=== PATIENT | female | born 1970 | race American Indian/Alaskan Native ===

== ENCOUNTER 2017-06-17 07:16 | Observation (INO) | payer BC ==
[2017-06-17 07:24] VITALS: BMI 38.7
[2017-06-17] MEDS ORDERED: Sodium Chloride 0.9% 1,000 ML IV STA (07:30)
--- NOTE | 2017-06-17 07:52 | ED PDOC ---
HPI: General Adult Time Seen by Provider: 06/17/17 07:20 Chief Complaint (Nursing): Flu-like Symptoms Chief Complaint (Provider): Flu-like Symptoms History Per: Patient History/Exam Limitations: no limitations Onset/Duration Of Symptoms: Days (x 3) Additional Complaint(s): Domenica Sullivan is a 37 year old female presents to the ED with complaints of epigastric pain associated with nausea and vomiting onset 3 days ago. Patient reports experiencing a low grade fever today. She denies any diarrhea or bleeding. PMD: non provided Past Medical History Reviewed: Historical Data, Nursing Documentation, Vital Signs Vital Signs: Last Vital Signs Temp 97.3 F L 06/17/17 07:19 Pulse 85 06/17/17 07:19 Resp 16 06/17/17 07:19 BP 98/68 L 06/17/17 07:19 Pulse Ox 97 06/17/17 08:00 - Medical History PMH: No Chronic Diseases - Surgical History Surgical History: No Surg Hx - Family History Family History: States: Unknown Family Hx - Social History Current smoker - smoking cessation education provided: No Alcohol: Social Drugs: Denies - Home Medications Home Medications: Ambulatory Orders Medication Instructions Recorded Acetaminophen with Codeine 1 tab PO Q6 PRN #15 tab 09/22/14 [Tylenol with Codeine No. 3 300 mg-30 mg] Ciprofloxacin/Ciprofloxa HCl 500 mg PO BID #14 tab 09/22/14 [Ciprofloxacin] Ibuprofen [Motrin] 600 mg PO Q6H PRN #15 tab 09/22/14 - Allergies Allergies/Adverse Reactions: Allergies Allergy/AdvReac Type Severity Reaction Status Date / Time peanuts Allergy RASH Uncoded 06/17/17 07:28 Review of Systems ROS Statement: Except As Marked, All Systems Reviewed And Found Negative Constitutional: Positive for: Fever (low) Gastrointestinal: Positive for: Nausea, Vomiting, Abdominal Pain (epigatric). Negative for: Diarrhea Physical Exam - Reviewed Nursing Documentation Reviewed: Yes Vital Signs Reviewed: Yes - Physical Exam Appears: Positive for: Non-toxic, No Acute Distress Head Exam: Positive for: ATRAUMATIC, NORMOCEPHALIC Skin: Positive for: Normal Color, Warm, Dry Eye Exam: Positive for: Normal appearance ENT: Positive for: Other (Dry mucous membrane) Neck: Positive for: Normal, Supple Cardiovascular/Chest: Positive for: Regular Rate, Rhythm. Negative for: Murmur Respiratory: Positive for: Normal Breath Sounds. Negative for: Respiratory Distress Gastrointestinal/Abdominal: Positive for: Tenderness (mild to the right lower quadrant). Negative for: Guarding, Rebound Extremity: Positive for: Normal ROM. Negative for: Tenderness, Swelling Neurologic/Psych: Positive for: Alert, Oriented - Laboratory Results Result Diagrams: 06/17/17 07:45 06/17/17 07:45 - ECG O2 Sat by Pulse Oximetry: 97 (RA) Pulse Ox Interpretation: Normal Medical Decision Making Medical Decision Making: Time: 745 Initial Plan: --CT Abd/Pellvis IV Contrast --CMP --Urine --Urine dipstick --CBC --NaCl 100ml IV, 259 mls/hr --Pepcid 20 mg IVP --Zofran 4 mg PO --Blood Culture Scribe Attestation: Documented by Sintia Mckenzie, acting as a scribe for Walt Gutiérrez MD. Provider Scribe Attestation: All medical record entries made by the Scribe were at my direction and personally dictated by me. I have reviewed the chart and agree that the record accurately reflects my personal performance of the history, physical exam, medical decision making, and the department course for this patient. I have also personally directed, reviewed, and agree with the discharge instructions and disposition. Disposition - Clinical Impression Clinical Impression: Abdominal pain - Patient ED Disposition Is Patient to be Admitted: Yes - Disposition Disposition Time: 11:23 Condition: FAIR Forms: Bagel Nash (Bengali) - Pt Status Changed To: Hospital Disposition Of: Observation - POA Present On Arrival: None
[2017-06-17 07:59] LABS: BASO % 0.4 % (0.0-2.0); EOS # 0.2 K/uL (0.0-0.7); EOS % 1.8 % (0.0-4.0); HEMOGLOBIN 12.1 g/dL (12.0-16.0); LYMPH # 1.1 K/uL (1.0-4.3); LYMPH % 10.8 % (20.0-40.0); MEAN CELL VOLUME 85.4 fl (81.0-99.0); MEAN CORPUSCULAR HEMOGLOBIN 28.6 pg (27.0-31.0); MEAN CORPUSCULAR HGB CONC 33.5 g/dL (33.0-37.0); MEAN PLATELET VOLUME 7.6 fl (7.2-11.7); MONO # 0.6 K/uL (0.0-0.8); MONO % 6.2 % (0.0-10.0); NEUT # 8.3 K/uL (1.8-7.0); NEUT % 80.8 % (50.0-75.0); RBC 4.24 Mil/uL (3.80-5.20); WHITE BLOOD COUNT 10.2 K/uL (4.8-10.8)
[2017-06-17 08:35] LABS: ALBUMIN 3.8 g/dL (3.5-5.0); ALT/SGPT 34 U/L (9-52); AST/SGOT 25 U/L (14-36); BLOOD UREA NITROGEN 10 mg/dl (7-17); CALCIUM 8.9 mg/dL (8.4-10.2); GFR AFRICAN-AMERICAN > 60; GFR NON-AFRICAN AMERICAN > 60
[2017-06-17] MEDS ORDERED: Iohexol 300 100 ML IJ ONE (09:07)
[2017-06-17] MEDS ORDERED: Sodium Chloride 0.9% 100 ML ONE (09:07)
--- NOTE | 2017-06-17 10:41 | CT ---
PROCEDURE: CT Abdomen and Pelvis with contrast HISTORY: RLQ pain COMPARISON: None. TECHNIQUE: CT scan of the abdomen and pelvis was performed after administration of intravenous contrast. Oral contrast was not administered. Coronal and sagittal reformatted images were obtained. Contrast dose: 95 cc Omnipaque 300 Radiation dose: Total exam DLP = 1013.26 mGy-cm. This CT exam was performed using one or more of the following dose reduction techniques: Automated exposure control, adjustment of the mA and/or kV according to patient size, and/or use of iterative reconstruction technique. FINDINGS: LOWER THORAX: There is subsegmental atelectasis in the lung bases, worse on the right. LIVER: Mild hepatomegaly and diffuse fatty infiltration in the liver. No gross lesion or ductal dilatation. GALLBLADDER AND BILE DUCTS: No calcified gallstones. PANCREAS: Normal in size with homogeneous enhancement. No gross lesion or ductal dilatation. SPLEEN: Normal in size and appearance. ADRENALS: No discrete nodule. KIDNEYS AND URETERS: Both kidneys are normal in size with homogeneous enhancement. No hydronephrosis. No solid mass. VASCULATURE: No aortic aneurysm. BOWEL: The small bowel loops are normal in caliber. The colon is unremarkable. No bowel dilatation, obstruction or wall thickening. APPENDIX: There is mild dilatation of fluid-filled appendix with mild wall enhancement. No significant inflammatory changes in the right lower quadrant. No perforation or abscess. PERITONEUM: No free fluid. No free air. LYMPH NODES: No enlarged lymph nodes. BLADDER: Grossly normal in appearance. REPRODUCTIVE: The uterus is normal in size. BONES: No acute fracture. Within normal limits for the patient's age. OTHER FINDINGS: None. IMPRESSION: 1. Mild dilatation of fluid-filled appendix with mild wall enhancement without significant inflammatory changes in the right lower quadrant, perforation or abscess. Findings may represent early acute appendicitis in the appropriate clinical setting. 2. Mild hepatomegaly and hepatic steatosis.
--- NOTE | 2017-06-17 11:17 | CP.PCM.HP ---
History of Present Illness - History of Present Illness History of Present Illness: General Surgery H&P for Dr. Andrade cc: RLQ abdominal pain, nausea/vomiting 47 F with PMH that includes ovarian cysts presents for [facility] for complaint of RLQ abdominal pain and nausea/vomiting. Patient was seen and evaluated in the ED. Patient states symptoms began 3 days ago. She states that she was at home resting when symptoms began. She reports sudden onset. She states that she has had pain from ovarian cyst in same area in the past but this pain is slightly different. She also states that she neevr had vomiting with the pain. She reports fever of 101 F on Friday and multiple episodes of NBNB emesis. She denies diarrhea. She rates pain as moderate intensity. She describes pain as constant and sharp located in RLQ without radiation. She states that eating/ drinking exacerbates her symptoms while nothing alleviates them. Denies recent illness or sick contacts. Denies chills, chest pain, palpitations, SOB, urinary symptoms. PMH: ovarian cysts Meds: Denies Allergy: peanuts PSH: Denies Family: Non-contributory Social: denies tobacco/illicit drug use, drinks 2-3 alcoholic beverages every other day Present on Admission - Present on Admission Any Indicators Present on Admission: No History of DVT/PE: No History of Uncontrolled Diabetes: No Urinary Catheter: No Decubitus Ulcer Present: No History Surgical Site Infection Following: None Review of Systems - Review of Systems All systems: reviewed and no additional remarkable complaints except (as per HPI ) Past Patient History - Past Social History Alcohol: Social Drugs: Denies - PSYCHIATRIC Hx Substance Use: No - SURGICAL HISTORY Hx Surgeries: No - ANESTHESIA Hx Anesthesia: No Meds Allergies/Adverse Reactions: Allergies Allergy/AdvReac Type Severity Reaction Status Date / Time peanuts Allergy RASH Uncoded 06/17/17 07:28 Physical Exam - Constitutional Appears: Non-toxic, No Acute Distress - Head Exam Head Exam: ATRAUMATIC, NORMOCEPHALIC - Eye Exam Eye Exam: EOMI, Normal appearance Pupil Exam: PERRL - ENT Exam ENT Exam: Mucous Membranes Moist - Neck Exam Neck exam: Positive for: Full Rom. Negative for: Tenderness - Respiratory Exam Respiratory Exam: NORMAL BREATHING PATTERN - Cardiovascular Exam Cardiovascular Exam: REGULAR RHYTHM - GI/Abdominal Exam GI & Abdominal Exam: Normal Bowel Sounds, Soft, Tenderness (RLQ). absent: Distended, Firm, Guarding, Hernia, Rebound, Rigid - Extremities Exam Extremities exam: Positive for: normal capillary refill, pedal pulses present. Negative for: calf tenderness - Back Exam Back exam: absent: CVA tenderness (L), CVA tenderness (R) - Neurological Exam Neurological exam: Alert, CN II-XII Intact, Oriented x3 - Psychiatric Exam Psychiatric exam: Normal Affect, Normal Mood - Skin Skin Exam: Dry, Intact, Normal Color, Warm Results - Vital Signs Recent Vital Signs: Last Vital Signs Temp 97.3 F L 06/17/17 07:19 Pulse 85 06/17/17 07:19 Resp 16 06/17/17 07:19 BP 98/68 L 06/17/17 07:19 Pulse Ox 97 06/17/17 08:00 - Labs Result Diagrams: 06/17/17 07:45 06/17/17 07:45 Labs: Laboratory Results - last 24 hr 06/17/17 06/17/17 07:45 07:45 WBC 10.2 RBC 4.24 Hgb 12.1 Hct 36.2 MCV 85.4 MCH 28.6 MCHC 33.5 RDW 14.0 Plt Count 353 MPV 7.6 Neut % (Auto) 80.8 H Lymph % (Auto) 10.8 L [place] % (Auto) 6.2 Eos % (Auto) 1.8 Baso % (Auto) 0.4 Neut # (Auto) 8.3 H Lymph # (Auto) 1.1 [place] # (Auto) 0.6 Eos # (Auto) 0.2 Baso # (Auto) 0.0 Sodium 140 Potassium 3.6 Chloride 103 Carbon Dioxide 24 Anion Gap 17 BUN 10 Creatinine 0.8 Est GFR ( Amer) > 60 Est GFR (Non-Af Amer) > 60 Random Glucose 110 H Calcium 8.9 Total Bilirubin 0.6 AST 25 ALT 34 Alkaline Phosphatase 88 Total Protein 7.8 Albumin 3.8 Globulin 4.0 H Albumin/Globulin Ratio 1.0 Assessment & Plan - Assessment and Plan (Free Text) Assessment: 47 F with RLQ abdominal pain and nausea/vomiting; CT suggestive of early appendicitis afebrile, no leukocytous but with slight shift Douglas score is 5; 4-6 recommends imaging AIR score is 3 low risk Plan: -Admit for observation -NPO -IV fluids -Analgesics/Anti-emetics -Discussed with Dr. Lupe Sauceda PGY1
[2017-06-17 12:13] LABS: SQUAMOUS EPITHIAL 22 /hpf (0-5); URINE BACTERIA MANY (<OCC); URINE BILIRUBIN NEGATIVE (NEGATIVE); URINE BLOOD LARGE (NEGATIVE); URINE CLARITY TURBID (Clear); URINE COLOR RED (YELLOW); URINE GLUCOSE (UA) NEG (Normal); URINE LEUKOCYTE ESTERASE MOD Leu/uL (Negative); URINE PROTEIN 100 mg/dL (NEGATIVE)
[2017-06-17] MEDS: Sodium Chloride 0.9% 1,000 ML IV SCH ×2 (12:20→17:34)
[2017-06-18 06:37] LABS: ALBUMIN 3.4 g/dL (3.5-5.0); ALT/SGPT 37 U/L (9-52); AST/SGOT 25 U/L (14-36); BLOOD UREA NITROGEN 11 mg/dl (7-17); CALCIUM 8.3 mg/dL (8.4-10.2); GFR AFRICAN-AMERICAN > 60; GFR NON-AFRICAN AMERICAN > 60
[2017-06-18 06:41] LABS: BASO % 0.5 % (0.0-2.0); EOS # 0.3 K/uL (0.0-0.7); EOS % 4.6 % (0.0-4.0); HEMOGLOBIN 10.6 g/dL (12.0-16.0); LYMPH # 1.5 K/uL (1.0-4.3); LYMPH % 25.2 % (20.0-40.0); MEAN CELL VOLUME 86.3 fl (81.0-99.0); MEAN CORPUSCULAR HGB CONC 32.4 g/dL (33.0-37.0); MEAN PLATELET VOLUME 7.7 fl (7.2-11.7); MONO # 0.6 K/uL (0.0-0.8); MONO % 10.9 % (0.0-10.0); NEUT # 3.5 K/uL (1.8-7.0); NEUT % 58.8 % (50.0-75.0); NRBC % 0.1 % (0.0-0.0); RBC 3.78 Mil/uL (3.80-5.20); RED CELL DISTRIBUTION WIDTH 14.1 % (11.5-14.5)
[2017-06-18 06:42] LABS: INR 1.1 (0.9-1.2); PARTIAL THROMBOPLASTIN TIME 28.5 Seconds (25.6-37.1); PROTHROMBIN TIME 12.6 Seconds (9.8-13.1)
[2017-06-18] MEDS: Sodium Chloride 0.9% 1,000 ML IV SCH (09:12)
[2017-06-18] MEDS ORDERED: Potassium Chloride 20 mEq ER Tab PO ONE (10:33)
--- NOTE | 2017-06-18 10:49 | CP.PCM.PN ---
Subjective - Date & Time of Evaluation Date of Evaluation: 06/18/17 Time of Evaluation: 09:30 - Subjective Subjective: General Surgery Note for Dr. Andrade Patient seen and examined at bedside. No acute event overnight. Patient still has some RLQ pain but states it is controlled. Denies fever/chills and nausea/ vomiting. Patient has been afebrile. She is tolerating regular diet and passing gas. Patient has no other complaints at this time. Objective - Vital Signs/Intake and Output Vital Signs (last 24 hours): Temp Pulse Resp BP Pulse Ox 97.8 F 68 18 113/73 98 06/18/17 08:00 06/18/17 08:00 06/18/17 08:00 06/18/17 08:00 06/18/17 08:00 - Medications Medications: Current Medications Acetaminophen (Tylenol 325mg Tab) 650 mg PO Q6H PRN PRN Reason: Headache Last Admin: 06/18/17 09:15 Dose: 650 mg Sodium Chloride (Sodium Chloride 0.9%) 1,000 mls @ 150 mls/hr IV .Q6H40M [facility] Last Admin: 06/18/17 09:12 Dose: 150 mls/hr Morphine Sulfate (Morphine) 2 mg IVP Q4 PRN PRN Reason: Pain, severe (8-10) Ondansetron HCl (Zofran Inj) 4 mg IVP Q6 PRN PRN Reason: Nausea/Vomiting Pantoprazole Sodium (Protonix Inj) 40 mg IVP DAILY [facility] Last Admin: 06/18/17 09:09 Dose: 40 mg - Labs Labs: 06/18/17 05:40 06/18/17 05:40 PT 12.6 Seconds (9.8-13.1) 06/18/17 05:40 INR 1.1 (0.9-1.2) 06/18/17 05:40 APTT 28.5 Seconds (25.6-37.1) 06/18/17 05:40 - Constitutional Appears: No Acute Distress - Head Exam Head Exam: ATRAUMATIC, NORMOCEPHALIC - ENT Exam ENT Exam: Mucous Membranes Moist - Respiratory Exam Respiratory Exam: NORMAL BREATHING PATTERN - Cardiovascular Exam Cardiovascular Exam: REGULAR RHYTHM - GI/Abdominal Exam GI & Abdominal Exam: Soft, Tenderness (mild RLQ), Normal Bowel Sounds. absent: Distended, Firm, Guarding, Rigid, Rebound - Extremities Exam Extremities Exam: Normal Capillary Refill - Neurological Exam Neurological Exam: Alert, Awake, Oriented x3 - Psychiatric Exam Psychiatric exam: Normal Affect, Normal Mood - Skin Skin Exam: Dry, Intact, Normal Color, Warm Assessment and Plan - Assessment and Plan (Free Text) Assessment: 47 F with RLQ abdominal pain Plan: -Regular diet -CHILD WELFARE CONSULTANT consult -f/u Transvaginal US -NPO past MN -Tentativelay plan for exploratory laparoscopy in OR tomorrow morning at 745 -Discussed with Dr. Lupe Sauceda PGY1
--- NOTE | 2017-06-18 13:12 | RAD ---
HISTORY: Preoperative assessment. COMPARISON: No prior. FINDINGS: LUNGS: No active pulmonary disease. PLEURA: No significant pleural effusion identified, no pneumothorax apparent. CARDIOVASCULAR: Normal. OSSEOUS STRUCTURES: No significant abnormalities. VISUALIZED UPPER ABDOMEN: Normal. OTHER FINDINGS: None. IMPRESSION: No active disease.
--- NOTE | 2017-06-18 14:47 | US ---
HISTORY: Lower abdominal pain. History of cysts and fibroids. COMPARISON: Comparison made with prior study 09/22/2014 TECHNIQUE: Transvaginal sonographic evaluation of the pelvis performed. FINDINGS: UTERUS: Measures 10.5 x 6.8 x 5.6 cm. Normal in size and appearance. There are at least 2 discrete uterine fibroids ; 1 in the anterior uterine body measuring approximately 2.2 cm in greatest dimension and another in the posterior body measuring 9 mm in greatest dimension 1.1 mm in diameter. . There is a small calcific density at adjacent to the posteriorly located fibroid that measures approximately 1.2 cm in greatest dimension which may also represent a calcified fibroid. . CERVIX: No cervical abnormality identified. RIGHT OVARY: Not visualized. LEFT OVARY: Measures 3.3 x 2.8 x 1.6 cm. No solid mass. Normal flow. FREE FLUID: No significant free fluid noted. OTHER FINDINGS: None. IMPRESSION: At least 2 uterine fibroids with with a small calcific density that may represent tiny calcified fibroid as well. 1st. Left ovary not visualized.
--- NOTE | 2017-06-18 16:42 | CP.PCM.CON ---
History of Present Illness - History of Present Illness History of Present Illness: The patient is a 47-year-old 2 para 2 last menstrual period 06/17/2017 patient presented to help COMPLAINING of lower abdominal pain for several days duration. Patient describes pain as stabbing in nature and intermittent comes and goes and is taken some Motrin with minimal relief. Patient states she started her menses 2 days ago reportedly normal flow. Review of Systems - EENT Ears: As Per HPI Nose/Mouth/Throat: As Per HPI - Breasts Breasts: As Per HPI - Cardiovascular Cardiovascular: As Per HPI - Respiratory Respiratory: As Per HPI - Gastrointestinal Gastrointestinal: As Per HPI - Genitourinary Genitourinary: As Per HPI - Reproductive: Female Reproductive:Female: As Per HPI - Menstruation Menstruation: As Per HPI - Integumentary Integumentary: As Per HPI Past Patient History - Past Medical History & Family History Past Medical History?: Yes - Past Social History Smoking Status: Never Smoked - CARDIAC Hx Cardiac Disorders: No - PULMONARY Hx Respiratory Disorders: No - NEUROLOGICAL Hx Neurological Disorder: No - HEENT Hx HEENT Problems: No - RENAL Hx Chronic Kidney Disease: No - ENDOCRINE/METABOLIC Hx Endocrine Disorders: No - HEMATOLOGICAL/ONCOLOGICAL Hx Blood Disorders: No - INTEGUMENTARY Hx Dermatological Problems: No - MUSCULOSKELETAL/RHEUMATOLOGICAL Hx Musculoskeletal Disorders: No Hx Falls: No - GASTROINTESTINAL Hx Gastrointestinal Disorders: No - GENITOURINARY/GYNECOLOGICAL Other/Comment: Ovarian cysts - PSYCHIATRIC Hx Psychophysiologic Disorder: No Hx Substance Use: No - SURGICAL HISTORY Hx Surgeries: Yes Other/Comment: pt states she had fatty tissue removed from back at surgical center - ANESTHESIA Hx Anesthesia: Yes Hx Anesthesia Reactions: No Meds Allergies/Adverse Reactions: Allergies Allergy/AdvReac Type Severity Reaction Status Date / Time peanuts Allergy RASH Uncoded 06/17/17 07:28 - Medications Medications: Current Medications Acetaminophen (Tylenol 325mg Tab) 650 mg PO Q6H PRN PRN Reason: Headache Last Admin: 06/18/17 15:55 Dose: 650 mg Morphine Sulfate (Morphine) 2 mg IVP Q4 PRN PRN Reason: Pain, severe (8-10) Ondansetron HCl (Zofran Inj) 4 mg IVP Q6 PRN PRN Reason: Nausea/Vomiting Pantoprazole Sodium (Protonix Inj) 40 mg IVP DAILY [facility] Last Admin: 06/18/17 09:09 Dose: 40 mg Physical Exam - Respiratory Exam Respiratory Exam: NORMAL BREATHING PATTERN - Cardiovascular Exam Cardiovascular Exam: REGULAR RHYTHM - GI/Abdominal Exam GI & Abdominal Exam: Normal Bowel Sounds Results - Vital Signs Recent Vital Signs: Last Vital Signs Temp 98.3 F 06/18/17 15:48 Pulse 76 06/18/17 15:48 Resp 20 06/18/17 15:48 BP 116/77 06/18/17 15:48 Pulse Ox 97 06/18/17 15:48 - Labs Result Diagrams: 06/18/17 05:40 06/18/17 05:40 Labs: Laboratory Results - last 24 hr 06/18/17 06/18/17 06/18/17 05:40 05:40 05:40 WBC 6.0 RBC 3.78 L Hgb 10.6 L Hct 32.6 L MCV 86.3 MCH 28.0 MCHC 32.4 L RDW 14.1 Plt Count 300 MPV 7.7 Neut % (Auto) 58.8 Lymph % (Auto) 25.2 [place] % (Auto) 10.9 H Eos % (Auto) 4.6 H Baso % (Auto) 0.5 Neut # (Auto) 3.5 Lymph # (Auto) 1.5 [place] # (Auto) 0.6 Eos # (Auto) 0.3 Baso # (Auto) 0.0 PT 12.6 INR 1.1 APTT 28.5 Sodium 144 Potassium 3.5 L Chloride 109 H Carbon Dioxide 22 Anion Gap 17 BUN 11 Creatinine 0.7 Est GFR ( Amer) > 60 Est GFR (Non-Af Amer) > 60 Random Glucose 84 Calcium 8.3 L Total Bilirubin 0.4 AST 25 ALT 37 Alkaline Phosphatase 76 Total Protein 7.0 Albumin 3.4 L Globulin 3.6 Albumin/Globulin Ratio 1.0 Assessment & Plan - Assessment and Plan (Free Text) Assessment: 47 year 3 old female with abdominal discomfort and history of fibroid uterus Fibroids noted to be approximately 2-1 cm in size Typically these fibroids present with abnormal bleeding Less likely presentation. Abdominal pain. The patient was advised to follow up with [facility] as an outpatient. The patient was given the opportunity to ask questions and all questions answered
[2017-06-19] MEDS ORDERED: Sodium Chloride 0.9% 1,000 ML IV SCH (02:45)
[2017-06-19 07:37] LABS: HEMOGLOBIN 10.6 g/dL (12.0-16.0); MEAN CELL VOLUME 86.2 fl (81.0-99.0); MEAN CORPUSCULAR HGB CONC 32.5 g/dL (33.0-37.0); RBC 3.79 Mil/uL (3.80-5.20); RED CELL DISTRIBUTION WIDTH 13.7 % (11.5-14.5); WHITE BLOOD COUNT 4.9 K/uL (4.8-10.8)
[2017-06-19] MEDS ORDERED: Lactated Ringer's 1,000 ML IV ONE ×2 (07:45→09:38)
[2017-06-19 07:51] LABS: PARTIAL THROMBOPLASTIN TIME 29.3 Seconds (25.6-37.1); PROTHROMBIN TIME 11.5 Seconds (9.8-13.1)
[2017-06-19] MEDS ORDERED: Propofol 10 mg/ml Inj (20 ML) ONE (07:56)
[2017-06-19] MEDS ORDERED: Rocuronium 10 mg/ml (5 ml) ONE (07:57)
[2017-06-19] MEDS ORDERED: Succinylcholine 200 mg/10 ml Inj IV ONE (07:57)
[2017-06-19] MEDS ORDERED: Midazolam 2 MG/2 ML VIAL ONE (07:57)
[2017-06-19] MEDS ORDERED: Neostigmine 1:1000 (1 mg/ml) Inj ONE (07:58)
[2017-06-19 08:05] LABS: ALB/GLOB RATIO 0.9 (1.0-2.1); ALBUMIN 3.6 g/dL (3.5-5.0); ALT/SGPT 38 U/L (9-52); AST/SGOT 36 U/L (14-36); BLOOD UREA NITROGEN 16 mg/dl (7-17); CALCIUM 8.7 mg/dL (8.4-10.2); GFR AFRICAN-AMERICAN > 60; GFR NON-AFRICAN AMERICAN > 60
[2017-06-19] MEDS ORDERED: Bupivacaine 0.5% Inj(30mL) ONE (08:17)
[2017-06-19] MEDS ORDERED: Lidocaine 1% w Epi 1:100,000 Inj ONE (08:17)
[2017-06-19] MEDS ORDERED: Bupivacaine 0.5% 50 ML IJ ONE (08:30)
[2017-06-19] MEDS ORDERED: Lidocaine/Epi 1% 1:100000 20 ML IJ ONE (08:30)
--- NOTE | 2017-06-19 09:42 | PCM.SURG1 ---
Surgeon's Initial Post Op Note - Surgeon's Notes Surgeon: MD Lupe Faa Certified Powerplant Mechanic: Kody PGY2. Komal PGY1. Pre-Operative Diagnosis: early appendicitis Operative Findings: early appendicitis, hemorrhagic pelvic fluid, Lesion on peritoneum Post-Operative Diagnosis: early appendicitis Operation Performed: Diagnostic laparoscopy, biopsy of lesion on peritoneum, suction of pelvic fluid, laparoscopic appendectomy Specimen/Specimens Removed: appendix, lesion on peritoneum Estimated Blood Loss: EBL {In ML}: 5 Date of Surgery/Procedure: 06/19/17 Time of Surgery/Procedure: 09:42
[2017-06-19] MEDS ORDERED: HYDROmorphone 0.5 mg/0.5 ml ISec ONE ×3 (09:44→10:11)
[2017-06-19] MEDS: HYDROmorphone 0.5 mg/0.5 ml ISec IVP PRN ×2 (09:56→10:11)
[2017-06-19] MEDS ORDERED: Lactated Ringer's 1,000 ML IV SCH (10:00)
--- NOTE | 2017-06-19 10:04 | CARD ---
APPROVED REPORT EKG Measurement Heart [id number] <Conclusion> Sinus bradycardia Nonspecific T wave abnormality Abnormal ECG
--- NOTE | 2017-06-19 16:52 | CP.PCM.DIS ---
Provider - Provider Date of Admission: 06/17/17 11:12 Attending physician: Walt Andrade MD Time Spent in preparation of Discharge (in minutes): 40 Hospital Course - Lab Results Lab Results: Micro Results 06/17/17 11:57 Urine Urine Culture - Final Escherichia Coli 06/17/17 07:45 Blood Blood Culture - Preliminary NO GROWTH AFTER 48 HOURS Most Recent Lab Values WBC 4.9 K/uL (4.8-10.8) 06/19/17 06:30 RBC 3.79 Mil/uL (3.80-5.20) L 06/19/17 06:30 Hgb 10.6 g/dL (12.0-16.0) L 06/19/17 06:30 Hct 32.7 % (34.0-47.0) L 06/19/17 06:30 MCV 86.2 fl (81.0-99.0) 06/19/17 06:30 MCH 28.0 pg (27.0-31.0) 06/19/17 06:30 MCHC 32.5 g/dL (33.0-37.0) L 06/19/17 06:30 RDW 13.7 % (11.5-14.5) 06/19/17 06:30 Plt Count 347 K/uL (130-400) 06/19/17 06:30 MPV 7.7 fl (7.2-11.7) 06/18/17 05:40 Neut % (Auto) 58.8 % (50.0-75.0) 06/18/17 05:40 Lymph % (Auto) 25.2 % (20.0-40.0) 06/18/17 05:40 Powell % (Auto) 10.9 % (0.0-10.0) H 06/18/17 05:40 Eos % (Auto) 4.6 % (0.0-4.0) H 06/18/17 05:40 Baso % (Auto) 0.5 % (0.0-2.0) 06/18/17 05:40 Neut # (Auto) 3.5 K/uL (1.8-7.0) 06/18/17 05:40 Lymph # (Auto) 1.5 K/uL (1.0-4.3) 06/18/17 05:40 Powell # (Auto) 0.6 K/uL (0.0-0.8) 06/18/17 05:40 Eos # (Auto) 0.3 K/uL (0.0-0.7) 06/18/17 05:40 Baso # (Auto) 0.0 K/uL (0.0-0.2) 06/18/17 05:40 PT 11.5 Seconds (9.8-13.1) 06/19/17 06:30 INR 1.0 (0.9-1.2) 06/19/17 06:30 APTT 29.3 Seconds (25.6-37.1) 06/19/17 06:30 Sodium 142 mmol/l (132-148) 06/19/17 06:30 Potassium 4.0 MMOL/L (3.6-5.0) 06/19/17 06:30 Chloride 105 mmol/L (98-107) 06/19/17 06:30 Carbon Dioxide 26 mmol/L (22-30) 06/19/17 06:30 Anion Gap 15 (10-20) 06/19/17 06:30 BUN 16 mg/dl (7-17) 06/19/17 06:30 Creatinine 0.7 mg/dl (0.7-1.2) 06/19/17 06:30 Est GFR ( Amer) > 60 06/19/17 06:30 Est GFR (Non-Af Amer) > 60 06/19/17 06:30 Random Glucose 110 mg/dL (65-105) H 06/19/17 06:30 Calcium 8.7 mg/dL (8.4-10.2) 06/19/17 06:30 Total Bilirubin 0.3 mg/dl (0.2-1.3) 06/19/17 06:30 AST 36 U/L (14-36) D 06/19/17 06:30 ALT 38 U/L (9-52) 06/19/17 06:30 Alkaline Phosphatase 73 U/L (38-126) 06/19/17 06:30 Total Protein 7.4 G/DL (6.3-8.2) 06/19/17 06:30 Albumin 3.6 g/dL (3.5-5.0) 06/19/17 06:30 Globulin 3.8 gm/dL (2.2-3.9) 06/19/17 06:30 Albumin/Globulin Ratio 0.9 (1.0-2.1) L 06/19/17 06:30 Urine Color Red (YELLOW) 06/17/17 11:57 Urine Clarity Turbid (Clear) 06/17/17 11:57 Urine pH 6.0 (5.0-8.0) 06/17/17 11:57 Ur Specific Higginson 1.021 (1.003-1.030) 06/17/17 11:57 Urine Protein 100 mg/dL (NEGATIVE) 06/17/17 11:57 Urine Glucose (UA) Neg mg/dL (Normal) 06/17/17 11:57 Urine Ketones Negative mg/dL (NEGATIVE) 06/17/17 11:57 Urine Blood Large (NEGATIVE) 06/17/17 11:57 Urine Nitrate Negative (NEGATIVE) 06/17/17 11:57 Urine Bilirubin Negative (NEGATIVE) 06/17/17 11:57 Urine Urobilinogen 4.0 mg/dL (0.2-1.0) H 06/17/17 11:57 Ur Leukocyte Esterase Mod Eugenio/uL (Negative) 06/17/17 11:57 Urine RBC (Auto) 2401 /hpf (0-3) H 06/17/17 11:57 Urine Microscopic WBC 232 /hpf (0-5) H 06/17/17 11:57 Ur Squamous Epith Cells 22 /hpf (0-5) H 06/17/17 11:57 Urine Bacteria Many (<OCC) H 06/17/17 11:57 Blood Type O POSITIVE 06/19/17 07:00 Antibody Screen Negative 06/19/17 07:00 BBK History Checked Patient has bt 06/19/17 07:00 - Hospital Course Hospital Course: 47 F with PMH that includes ovarian cysts presents for [facility] for complaint of RLQ abdominal pain and nausea/vomiting. Patient was seen and evaluated in the ED. Patient states symptoms began 3 days ago. She states that she was at home resting when symptoms began. She reports sudden onset. She states that she has had pain from ovarian cyst in same area in the past but this pain is slightly different. She also states that she never had vomiting with the pain. She reports fever of 101 F on Friday and multiple episodes of NBNB emesis. She denies diarrhea. She rates pain as moderate intensity. She describes pain as constant and sharp located in RLQ without radiation. She states that eating/ drinking exacerbates her symptoms while nothing alleviates them. Denies recent illness or sick contacts. Denies chills, chest pain, palpitations, SOB, urinary symptoms. PMH: ovarian cysts Meds: Denies Allergy: peanuts PSH: Denies Family: Non-contributory Social: denies tobacco/illicit drug use, drinks 2-3 alcoholic beverages every other day CT scan showed mild dilatation of the fluid fill appendix. Transvaginal ultrasound showed 2 uterine fibroids. Patient went to OR 06/19/17 for diagnostic laparoscopy and appendectomy. During laparoscopy it was visualized that appendix was slightly enlarged and mildly inflammed. Post-operatively patient pain was controlled and she tolerated diet. Ready to go home. Discharge Exam - Head Exam Head Exam: ATRAUMATIC, NORMOCEPHALIC - Respiratory Exam Respiratory Exam: Clear to PA & Lateral, NORMAL BREATHING PATTERN - Cardiovascular Exam Cardiovascular Exam: REGULAR RHYTHM, +S1, +S2 - GI/Abdominal Exam GI & Abdominal Exam: Soft, Tenderness. absent: Distended, Firm, Guarding, Rebound, Rigid Additional comments: dressing CDI - Neurological Exam Neurological exam: Alert, Oriented x3 - Skin Skin Exam: Dry, Intact, Normal Color, Warm Discharge Plan - Follow Up Plan Condition: FAIR Disposition: HOME/ ROUTINE Instructions: Appendicitis, Adult (DC), Laceration Repair With Glue (DC), Appendectomy, Laparoscopic Surgery (DC) Additional Instructions: Follow up with primary MD and surgeon 1-2 weeks. May shower but no bathing. Glue on incisions will fall off on their own. No heavy lifting for 4 weeks. OTC medication for pain. Referrals: Walt Andrade MD [Staff Provider] -
[2017-06-19 18:23] VITALS: BP 110/63; PULSE 65; RESP 20; TEMP 98.5; O2SAT 100
--- NOTE | 2017-07-04 08:44 | OP ---
PROCEDURE DATE: 06/19/2017 PREOPERATIVE DIAGNOSES: Abdominal pain and appendicitis. POSTOPERATIVE DIAGNOSIS: Abdominal pain and appendicitis. PROCEDURES: 1. Exploratory laparoscopy. 2. Laparoscopic enterolysis. 3. Laparoscopic appendectomy. 4. Resection of pelvic tumor. 5. Sono-guided bilateral transverse abdominis plain block anesthesia. SURGEON: Walt Andrade MD TYPE OF ANESTHESIA: General endotracheal. IV FLUID INTAKE: 1 L of Ringers lactate. ESTIMATED BLOOD LOSS: 50 mL COMPLICATIONS: None. DRAINS: None. SPECIMEN: Appendix to pathology as well as pelvic tumor. IMPLANTS AND DEVICES: None. DISPOSITION: Stable and extubated to recovery room. CLINICAL INFORMATION: Ms. Sullivan is a 47-year-old female who has been complaining of intermittent right lower quadrant and pelvic pain accompanied by nausea, which happens rather frequently once every week for the last couple of months. The pain that she experienced of the right lower quadrant pelvic pain and seek further care at the [facility]. Workup showed questionable inflamed appendix as well as fluid collection in the pelvis. Based on this information as well as and the fact that the pain specialist 24 hours well under observation in the hospital. The patient was taken to the operating room for exploration. INTRAOPERATIVE FINDINGS: The patient had approximately 30 mL of bloody ascites in the pelvis as well as a small tumor in the fundus of the uterus on the left side of the fundus of the uterus and inflamed appendix. DESCRIPTION OF PROCEDURE: The patient was brought into the operating room and placed on the operating room table in the supine position. After induction of general endotracheal anesthesia, Venodyne boots were placed in the both legs and prophylactic antibiotics were given. The entire abdomen was prepped and draped in the usual sterile fashion. A Castañeda catheter was inserted into the bladder. The infraumbilical area was infiltrated with local anesthetic which comprised 0.5% Marcaine and 1% lidocaine with epinephrine in equal volumes. A 15 blade was used to perform a vertical incision, which was then brought down to the subcutaneous tissue using Bovie electrocautery. The linea alba was excised and the peritoneal cavity was accessed. An 0 Vicryl stitch was placed from each side of the incised fascia and Luis Antonio trocar was inserted under direct visualization. The blade was removed and the port was secured the abdominal wall using 0 Vicryl anchoring stitch. The patient's position was changed Trendelenburg of the left side down exposing the right lower quadrant and the port was connected to CO2 tank generating pneumoperitoneum up to 16 mmHg. A 10 mm third-degree laparoscopic video camera was inserted and the abdomen was inspected. The appendix appeared to be enlarged and inflamed, this approximated with 30 mL of bloody ascites in the pelvis and right paracolic gutter. The mesoappendix appeared to be injected. Other significant findings were identified. Two 5 mm ports were inserted in the lower abdomen after infiltrating the skin with local anesthetic and incising with a 15 blade. The ports were placed to the suprapubic and left lower quadrant areas under direct laparoscopic visualization. Through the port, a 5 mm endograsper was inserted and through the left lower quadrant port, a 5 mm LigaSure was inserted and the appendix was mobilized and exposing along its entire length of the mesoappendix. The LigaSure was used to sequentially secured the mesoappendix all the way to the base of the appendix. The EndoGIA 45 blue stapler was fired across the base of the appendix and the specimen was placed in the endo bag and removed from the operating field. was sent to pathology, appropriately labeled for permanent section. The pelvic bloody ascitic fluid was aspirated and the area was irrigated copiously with warm normal saline. The pelvic tumor, which was situated at the dome of the with biopsy forceps and sent off to pathology for permanent sections. The biopsy site was cauterized with Bovie electrocautery. There was no evidence of bleeding or bleeders from the mesoappendix was discharged from the appendiceal stump. The infraumbilical borders were removed and the fascial defect was closed with interrupted 0 Vicryl stitches. The fascial closure was checked by inserting 5 mm third degree laparoscopic video camera through the left lower quadrant port. It was also confirmed there was no evidence of bleeding or omental or bowel entrapment. The remaining two 5 mm ports were removed under direct laparoscopic visualization and there was no evidence of bleeding from the port sites. All skin and incisions were closed with 4-0 continuous subcuticular Monocryl stitch and Dermabond was applied. A transverse abdominis plain block anesthesia was performed bilaterally using a small probe and identifying the similar and injecting 10 mL of Marcaine and Marcaine 0.5% on each side at the level of the right above the umbilicus. At the end of the surgery, the counts of instruments, gauze, and needles counts were correct x2. The patient tolerated the surgery well and was transferred in stable condition to recovery room. Walt Andrade MD
== END 2017-06-19 19:10 | disposition home or self-care (01) ==
LOC: H.ER 07:16 → H.ERHOLD 11:12 → H.MEDSURG1 15:08
PROVIDERS: ADMIT Specialist; ATTEND Specialist
DX: K37 Unspecified appendicitis (principal); D25.9 Leiomyoma of uterus, unspecified; N93.8 Other specified abnormal uterine and vaginal bleeding
CPT/HCPCS: 36415; 44970; 71045; 74177; 76830; 80053; 81003; 81025; 85025; 85027; 85610; 85730; 86850; 86900; 87040; 87086; 87181; 88304; 88305; 93005; 96374; 96375; 96376; 99284; C9113; G0378; J0330; J1170; J2001; J2250; J2270; J2405; J2704; J2710; J3010; J7040; J7120; Q9967